=== PATIENT | female | born 1945 | race Caucasian/White ===

== ENCOUNTER 2020-07-20 09:30 | Observation (INO) | payer MEDICARE ==
[~2020-07-20] VITALS: Ht 165.1 cm; Wt 64.6 kg
[~2020-07-20 09:30] MED LIST: BACTRIM DS TAB1 EACH PO; CEFTIN250 MG PO; CELEXA20 MG PO; FLAGYL500 MG PO; IMODIUM2 MG PO; LEVOTHYROXINE88 MCG PO; PILOCARPINE HCL5 MG PO; PROTONIX40 MG/ML PO; REGLAN10 MG PO; VITAMIN D35000 UNIT PO
[2020-07-20] MEDS ORDERED: SODIUM CHLORIDE 0.9% 1000ML 1,000 ML IV STA (10:01)
--- NOTE | 2020-07-20 10:09 | Emergency Department Note ---
History of Present Illnes History of Present Illness Chief Complaint: Eye, Ear, Nose, Throat, Dental History of Present Illness This is a 75 year old female. She Reports that she was eating yesterday and since then she has felt like something has been stuck in her throat and she has not been able to swallow water, her medication, oatmeal or anything else since yesterday. She has had this problem before but not this bad and usually she can eat something thick like oatmeal and push it in and get it to move down with drinking lots of water but this time nothing will go down, it just comes right back up. . Historian: Patient Arrival Mode: Car Form Setter Required: No Onset (how long ago): hour(s) Radiation: Reports non-radiation Severity: moderate Onset quality: sudden Duration (how long): hour(s) Progression: worsening Relieving factors: none Exacerbating factors: none Associated symptoms: Reports denies other symptoms Treatments prior to arrival: none Past Medical/Family History Physician Review I have reviewed the patient's past medical and family history. Any updates have been documented here. Past Medical History Recent Fever: No Clinical Suspicion of Infectio: No New/Unexplained Change in Ment: No Past Medical History: Hypothyroidism, Cancer, Anxiety, Depression, Hy perlipedemia Other Medical History: Thyroid cancer Non Hodgkins Lymphoma Past Surgical History: Hysterectomy, T&A, Lumpectomy Other Surgery: Thyroidectomy Social History Smoking Cessation: Never Smoker Counseling Performed: No Alcohol Use: None Any Illegal Drug Use: No Physically hurt or threatened: No Other Any Pre-Existing Lines (PICC,: No Review of Systems Review of Systems Constitutional: Reports no symptoms EENTM: Reports no symptoms Cardiovascular: Reports no symptoms Respiratory: Reports no symptoms Gastrointestinal: Reports as per HPI Genitourinary: Reports no symptoms Musculoskeletal: Reports no symptoms Integumentary: Reports no symptoms Neurological: Reports no symptoms Psychological: Reports no symptoms Endocrine: Reports no symptoms Hematological/Lymphatic: Reports no symptoms Physical Exam Related Data Allergies: Coded Allergies: amoxicillin (Verified Allergy, Intermediate, RASH, 05/13/15) tetanus & diphtheria toxoids (Verified Allergy, Intermediate, RASH, 05/13/15) Triage Vital Signs Vital Signs Date Time Temp Pulse Resp B/P (MAP) Pulse Ox O2 Delivery O2 Flow Rate FiO2 07/20/20 09:39 99.5 55 16 172/78 100 Room Air Vital signs reviewed: Yes Physical Exam CONSTITUTIONAL Constitutional: Present well-developed, Present well-nourished HENT HENT: Present normocephalic, Present atraumatic, Present oropharynx normal, Present mucosae dry, Present nose normal HENT L/R: Present left ext ear normal, Present right ext ear normal EYES Eyes: Reports PERRL, Reports conjunctivae normal NECK Neck: Present ROM normal PULMONARY Pulmonary: Present effort normal, Present breath sounds normal CARDIOVASCULAR Cardiovascular: Present regular rhythm, Present heart sounds normal, Present capillary refill normal, Present normal rate GASTROINTESTINAL Abdominal: Present soft, Present nontender, Present bowel sounds normal GENITOURINARY Genitourinary: Present exam deferred SKIN Skin: Present warm, Present dry MUSCULOSKELETAL Musculoskeletal: Present ROM normal NEUROLOGICAL Neurological: Present alert, Present oriented x 3, Present no gross motor or sensory deficits PSYCHOLOGICAL Psychological: Present mood/affect normal, Present judgement normal Results Laboratory Lab results reviewed: Yes Laboratory comments Lab ok Imaging Imaging results reviewed: Yes Imaging Comments no acute Procedures EJ/ Peripheral Line EJ/peripheral line location: left neck Time out performed: Yes Size (gauge): 20 IV secured/dressing applied: Yes Patient tolerated procedure: no complications Assessment & Plan Medical Decision Making MDM esophageal stricture, cannot keep down any fluid, needs endoscopy sandra Reassessment Reassessment no changes Assessment & Plan Final Impression: (1) Esophageal stricture (2) Dehydration (3) Dysphagia Depart Disposition: ADMITTED Last Vital Signs Date Time Temp Pulse Resp B/P (MAP) Pulse Ox O2 Delivery O2 Flow Rate FiO2 07/20/20 09:39 99.5 55 16 172/78 100 Room Air Home Meds Active Scripts Loperamide Hcl* (IMODIUM*) 2 Mg Cap, 2 MG PO Q4HR PRN for DIARRHEA, #30 Prov:ADDIE CHAPMAN LOFTER 05/16/15 Metoclopramide Hcl (REGLAN) 10 Mg Tablet, 10 MG PO ACHS for 30 Days Prov:ADDIE CHAPMAN LOFTER 05/16/15 Pantoprazole Sod (PROTONIX) 40 Mg/Ml Susp, 40 MG PO ACB for 30 Days, 2 Refills Prov:ADDIE CHAPMAN LOFTER 05/16/15 Reported Medications Pilocarpine Hcl (PILOCARPINE HCL) 5 Mg Tablet, 5 MG PO TID 05/13/15 Levothyroxine Sodium (LEVOTHYROXINE SODIUM) 88 Mcg Tablet, 88 MCG PO DAILY, #30 TAB 05/13/15 Citalopram Hydrobromide (CELEXA) 20 Mg Tablet, 20 MG PO DAILY PRN for ANXIETY 05/13/15 Cholecalciferol (Vitamin D3) (VITAMIN D3) 5,000 Unit Capsule, 5000 UNITS PO DAILY 05/13/15 Discontinued Scripts Cefuroxime Axetil (CEFTIN) 250 Mg Tablet, 1 TAB PO Q12H for 10 Days Prov:ADDIE CHAPMAN LOFTER 05/16/15 Metronidazole (FLAGYL) 500 Mg Tablet, 500 MG PO Q8H for 10 Days Prov:ADDIE CHAPMAN LOFTER 05/16/15 Medications in the ED Ondansetron HCl 4 mg ONCE ONCE IV ; Start 07/20/20 at 10:15; Stop 07/20/20 at 10:16; Status UNV Famotidine 20 mg ONCE ONCE IV ; Start 07/20/20 at 10:15; Stop 07/20/20 at 10:16; Status UNV Sodium Chloride 1,000 ml @ 0 mls/hr Q0M STAT IV ; Start 07/20/20 at 10:01; Stop 07/20/20 at 10:03; Status DC Physician Attestation Provider Attestation case discussed with Dr To and JONN Alejandro MD Jul 20, 2020 10:09
[2020-07-20] MEDS ORDERED: SODIUM CHLORIDE 0.9% 1000ML 1,000 ML ONE (10:14)
[2020-07-20] MEDS ORDERED: ONDANSETRON HCL INJ 2MG/ML 2ML 2 MG/ML VIAL IV ONE (10:15)
[2020-07-20] MEDS ORDERED: ONDANSETRON HCL INJ 2MG/ML 2ML 2 MG/ML VIAL IV PRN (10:15)
[2020-07-20] MEDS ORDERED: DIPHENHYDRAMINE HCL INJ 50 MG/ML VIAL IV PRN (10:15)
[2020-07-20] MEDS ORDERED: ENALAPRILAT IV INJ 1.25 MG/ML VIAL IV PRN (10:15)
[2020-07-20] MEDS ORDERED: FAMOTIDINE 20 MG/2 ML VIAL IV ONE (10:15)
[2020-07-20] MEDS ORDERED: MORPHINE SULFATE INJ 4 MG/ML INJ 1ML IV PRN (10:15)
--- NOTE | 2020-07-20 10:39 | NUR ---
Three IV sticks tried on Pt and unable to obtain an IV, pt is dehydrated and veins are flat. aware.
--- NOTE | 2020-07-20 11:03 | Diagnostic Imaging Report ---
EXAM: Single AP view of the chest. COMPARISON: None. INDICATION: ^DIFFICULTY SWALLOWING ^20200720 ^1040 FINDINGS: Lines/tubes: None. Limited neck: Prominent soft tissue opacity overlying the upper neck and midline. Lungs: The lungs are well inflated and clear. Pleura: There is no pleural effusion or pneumothorax. Heart and mediastinum: The heart is within normal limits. Both mariah are prominent. Mild atherosclerotic calcifications of the aortic arch. Bones and soft tissues: Dextroscoliosis. IMPRESSION: No acute cardiopulmonary abnormalities. No metallic foreign bodies overlying the airway in the chest. Prominent soft tissue opacity overlying the upper neck and midline is indeterminate. Consider neck x-ray frontal and lateral views. Prominent bilateral hilar may relate to enlarged pulmonary arteries. This can be further evaluated with outpatient CT chest with IV contrast. Signed by: Dr. Stephanie Levi M.D. on 07/20/2020 10:59 AM
--- OUTSIDE RECORDS SUMMARY | 2020-07-20 12:11 | XMS REPORT | Continuity of Care Document ---
Author Author [facility] Organization [facility] Address [address] [place] [address] Dr. Harden. [address] [place] [phone] Phone Unavailable Care Team Providers Care Lapper Name Role Phone Ton CASILLAS Attphys Unavailable PHIL SPENCER Admphys Unavailable Problems This patient has no known problems. Allergies, Adverse Reactions, Alerts This patient has no known allergies or adverse reactions. Medications This patient has no known medications. Procedures This patient has no known procedures. Results Test Description Test Time Test Comments Results Result Comments Source CXR 1 [facility] 2020-07-20 10:55:00 [facility] [address] [place] [id number] Patient Name: AMRITA WEBER MR #: [id number] : 1945 Age/Sex: 75/F Req #: [id number] Adm Physician: Ordered by: JONN CASILLAS MD Report #: [id number] Location: [facility] Room/Bed: Procedure: [id number] HOPD/CXR 1 [facility] Exam Date: 07/20/20 Exam Time: 1040 REPORT STATUS: Signed EXAM: Single AP view of the chest. COMPARISON: None. INDICATION: DIFFICULTY SWALLOWING 20200720 FINDINGS: Lines/tubes: None. Limited neck: Prominent soft tissue opacity overlying the upper neck and midline. L ungs: The lungs are well inflated and clear. Pleura: There is no pleural effusion or pneumothorax. Heart and mediastinum: The heart is within normal limits. Both mariah are prominent. Mild atherosclerotic calcifications of the aortic arch. Bones and soft tissues: Dextroscoliosis. IMPRESSION: No acute cardiopulmonary abnormalities. No metallic foreign bodies overlying the airway in the chest. Prominent soft tissue opacity overlying the upper neck and midline is indeterminate. Consider neck x-ray frontal and lateral views. Prominent bilateral hilar may relate to enlarged pulmonary arteries. This can be further evaluated with outpatient CT chest with IV contrast. Signed by: Dr. Terence Majano M.D. on 07/20/2020 10:59 AM Dictated By: TERENCE MAJANO MD 105 Transcribed By: NIKOS on 07/20/20 105 COPY TO: JONN CASILLAS MD
--- OUTSIDE RECORDS SUMMARY | 2020-07-20 12:19 | XMS REPORT | Continuity of Care Document ---
Author Author [facility] Organization [facility] Address [address] [place] [address] Dr. Harden[address] [place] [phone] Phone Unavailable Care Team Providers Care Turkey Cleaner Name Role Phone Ton CASILLAS Attphys Unavailable PHIL SPENCER Admphys Unavailable Problems This patient has no known problems. Allergies, Adverse Reactions, Alerts This patient has no known allergies or adverse reactions. Medications This patient has no known medications. Procedures This patient has no known procedures. Results Test Description Test Time Test Comments Results Result Comments Source CXR 1 [facility] 2020-07-20 10:55:00 [facility] [address] [place] [id number] Patient Name: AMRITA WEBER MR #: [id number] : 1945 Age/Sex: 75/F Req #: [id number] Adm Physician: Ordered by: JONN CASILLAS MD Report #: [id number] [facility] Room/Bed: Procedure: [id number] HOPD/CXR 1 [facility] Exam Date: 07/20/20 Exam Time: 1040 REPORT [...]
--- NOTE | 2020-07-20 12:57 | NUR ---
[facility] contacted for transport ETA is 35 minutes
--- NOTE | 2020-07-20 13:25 | NUR ---
Report to AUGUSTINE Ness
[2020-07-20] MEDS ORDERED: PROPOFOL IV EMULSION 10 MG/ML 20 ML VIAL ONE (14:02)
[2020-07-20] MEDS ORDERED: ONDANSETRON HCL INJ 2MG/ML 2ML 2 MG/ML VIAL ONE (14:02)
[2020-07-20] MEDS ORDERED: LIDOCAINE HCL 2% LOCAL INJ 5 ML SDV VIAL INJ ONE (14:02)
[2020-07-20] MEDS ORDERED: DEXAMETHASONE SOD PHOS INJ 4 MG/ML VIAL ONE (14:02)
[2020-07-20] MEDS ORDERED: PANTOPRAZOLE 40 MG 10ML VIAL ONE (15:35)
[2020-07-20] MEDS ORDERED: METOCLOPRAMIDE HCL 10 MG/2ML VIAL ONE (15:35)
[2020-07-20] MEDS: PANTOPRAZOLE 40 MG 10ML VIAL IV SCH (15:45)
--- NOTE | 2020-07-20 16:30 | NUR ---
PATIENT RECEIVED FROM RECOVERY PER STRETCHER. PATIENT WAS TRANSFERRED FROM [facility]. ALERT AND VERBALLY RESPONSIVE, ABLE TO TRANSFER SELF FROM STRETCHER TO BED. DENIED PAIN AT THIS TIME. SKIN WARM AND DRY TO TOUCH, RESPIRATION EVEN AND UNLABORED, ABDOMEN SOFT AND NON DISTENDED. PATIENT ORIENTED TO SURROUNDINGS. BED IN LOWER POSITION, CALL LIGHT AT REACH. INSTRUCTED TO CALL FOR ASSISTANCE NEEDED.
[2020-07-20 16:46] VITALS: BP 168/69
[2020-07-20 16:57] VITALS: BP 168/69
--- NOTE | 2020-07-20 17:22 | Operative Report ---
DATE OF PROCEDURE: 07/20/2020 SURGEON: Felton Adames MD PROCEDURE: 1. EGD with foreign body removal. 2. Esophageal dilatation. 3. Polypectomy and biopsies. INDICATION FOR PROCEDURE: Foreign body in esophagus. MEDICATIONS: The patient was done under MAC, please see anesthesiologist's note. PROCEDURE IN DETAIL: With the patient in left lateral decubitus position and after induction of adequate general endotracheal anesthesia, a flexible fiberoptic Olympus gastroscope was introduced into the esophagus under direct visualization without any difficulty. There was a meat bolus noted impacted in the distal esophagus and it was eventually removed with a combination of polypectomy snare and a large biopsy forceps. The mucosa overlying the distal esophagus was ulcerated and friable. The scope was then advanced with ease into the stomach. Mucosa overlying the antrum and the body revealed some patchy intense erythema and [id number] edema, and biopsies were obtained and sent to stain for H pylori. Also, some hyperplastic-appearing polyps were noted in the body of the stomach and somewhat partially excised with the cold biopsy forceps. Pylorus was of normal contour and shape, was intubated with ease and the scope was advanced all the way to the second portion of the duodenum. The scope was then withdrawn slowly, mucosa overlying the proximal second portion and the duodenal bulb appeared to be within normal limits. The scope was then withdrawn back into the stomach and retroflexed mucosa overlying the fundus and cardia appeared to be within normal limits. The scope was then straightened out, it was subsequently withdrawn. The esophageal stricture was then dilated to size 48-Nepalese Wolf. The patient tolerated procedure well. IMPRESSION: 1. Meat bolus in distal esophagus removed per polypectomy snare and large biopsy forceps. 2. Ulcerated distal esophagus dilated to size 48-Nepalese Wolf. 3. Gastritis, biopsied, biopsies sent to stain for H pylori. 4. Gastric polyps, body, hyperplastic-appearing, some partially excised with the cold biopsy forceps. PLAN: Follow up histology. Initiate Protonix 40 mg IV b.i.d. Felton Adames MD [facility]/ABRAHAM /[id number] cc: Zehra To MD
[2020-07-20] MEDS: FAMOTIDINE 20 MG/2 ML VIAL IV SCH (17:30)
[2020-07-20] MEDS: D5.45%NS/KCL 20MEQ 1,000 ML IV SCH (18:15)
--- NOTE | 2020-07-20 18:38 | History and Physical ---
PRIMARY CARE DO[facility] CHIEF COMPLAINT: Food stuck in her throat. HISTORY OF PRESENT ILLNESS: This is a 75-year-old woman, who clearly has trouble eating having the food or water getting stuck, however, yesterday the patient had some pork chops, however, it got stuck and therefore the patient came to the emergency room. Otherwise, she is in her usual state of health. No chest pain. No shortness of breath, no fever, no cough. The patient stated she had an endoscopy three or four years ago thoroughly it was unremarkable. The patient does not take anything for her stomach. The patient was emergently taken to have EGD done for which foreign body was removed. PAST MEDICAL/SURGICAL HISTORY: 1. Hyperlipidemia. 2. Breast cancer. 3. Hypothyroidism. 4. Lumpectomy. 5. Hysterectomy. MEDICATIONS: Please see medication reconciliation form. ALLERGIES: PENICILLIN. SOCIAL HISTORY: Does not smoke. FAMILY HISTORY: No cancer. REVIEW OF SYSTEMS: A 12-point review of system obtained and nothing else is significant other than what is stated in HPI. VITAL SIGNS: Temperature 99.5, pulse 70, respiratory rate 18, blood pressure 156/63. GENERAL: No acute distress. SKIN: No rash. HEENT: Sclerae anicteric. Oropharynx is clear. LUNGS: Clear. HEART: Regular rate and rhythm. Normal S1, S2. GI: Abdomen is soft and nontender. NEUROLOGIC: Alert and oriented x3. Cranial nerves II through XII grossly intact. PSYCHIATRIC: No hallucination. MUSCULOSKELETAL: Painless range of motion. LABORATORY DATA: Creatinine 0.85. ASSESSMENT AND PLAN: 1. Dysphagia with esophageal stricture, status post full bolus removal via EGD. We will continue IV Protonix per GI given there is some ulcerations. Will start full liquid diet. We will see how she does tomorrow. 2. GI and DVT prophylaxis. Protonix IV and no chemical DVT prophylaxis due to recent procedure. MD CHARITY Schwarz/ABRAHAM /[id number] [facility]
[2020-07-20 20:00] VITALS: BP 148/65
[2020-07-20 20:20] VITALS: BP 148/65
--- NOTE | 2020-07-20 20:20 | NUR ---
PATIENT RESTING IN BED IN STABLE CONDITION, NO SIGNS OF DISTRESS NOTED. IV FLUIDS ARE RUNNING AT ORDERED RATE, PATIENT VOICES NO PAIN AT THIS TIME. PATIENT VOICES THAT THEY ARE EATING AND SWALLOWING FOOD WELL. BED IS IN LOW POSITION, BOTH SIDE RAILS ARE UP, CALL LIGHT IS WITHIN EASY REACH, WILL CONTINUE TO MONITOR.
[2020-07-21] VITALS: BP 133/61
[2020-07-21] MEDS: D5.45%NS/KCL 20MEQ 1,000 ML IV SCH ×2 (01:47→11:11)
[2020-07-21] MEDS: PANTOPRAZOLE 40 MG 10ML VIAL IV SCH (03:51)
[2020-07-21 04:00] VITALS: BP 123/53
--- NOTE | 2020-07-21 07:14 | NUR ---
PATIENT IN BED RESTING WITH NO S/S OF DISCOMFORT. IV FLUID INFUSING ORDERED. BED IN LOWER POSITION, CALL LIGHT AT REACH.
[2020-07-21 07:35] VITALS: BP 130/54
[2020-07-21 07:45] VITALS: BP 130/54
[2020-07-21] MEDS: FAMOTIDINE 20 MG/2 ML VIAL IV SCH (09:14)
--- NOTE | 2020-07-21 11:02 | NUR ---
PATIENT AMBULATING BY SELF IN THE ROOM, NO COMPLAIN VOICED. CALL LIGHT AT REACH.
[2020-07-21 13:00] VITALS: BP 121/55
[2020-07-21] MEDS ORDERED: PANTOPRAZOLE SO40 MG PO (14:49)
--- NOTE | 2020-07-21 14:51 | NUR ---
PER DR. Gabriella SPENCER, PATIENT IS OK TO DISCHARGE HOME. CALL OFFICE TO SCHEDULE FOLLOW UP APPOINTMENT.
--- NOTE | 2020-07-21 15:40 | NUR ---
PATIENT DISCHARGED HOME. DISCHARGE INSTRUCTIONS, PRESCRIPTION, AND FOLLOW UP GIVEN TO PATIENT, SHE VERBALIZED UNDERSTANDING. IV TO LEFT EJ REMOVED WITH TIP INTACT. ALL PERSONAL ITEMS TAKEN WITH PATIENT. REFUSED WHEEL CHAIR, BUT WAS ACCOMPANIED BY STAFF MEMBER TO FRONT LOBBY IN STABLE CONDITION.
--- NOTE | 2020-07-22 03:58 | Discharge Summary ---
PRIMARY CARE DOCTOR: Dr. Mosqueda with [facility]. FINAL DIAGNOSES: Dysphagia and esophageal stricture with meat bolus. SECONDARY DIAGNOSES: 1. Hyperlipidemia. 2. Breast cancer. 3. Hypothyroidism. CONSULTANTS: Dr. Adames, GI. PROCEDURES/STUDIES PERFORMED: EGD, where meat bolus was retrieved and ulcerated distal esophagus was dilated. HISTORY: Per dictated H and P. HOSPITAL COURSE: The patient underwent EGD and meat bolus retrieval. Given that there was some ulceration, the patient was put on IV Protonix twice a day. The patient was allowed liquid diet. She did well. Next day, the patient was tolerating GI soft diet. Therefore, was deemed stable for discharge home. The patient will continue Protonix twice a day. The patient was seen and examined today. CONDITION ON DISCHARGE: Improved. DISCHARGE MEDICATIONS: Please see medication reconciliation form. FOLLOWP: The patient will follow up with PCP in 1 to 2 weeks and follow up with Dr. Adames in 2 weeks. [facility] MD CHARITY Grant/ABRAHAM /[id number]
== END 2020-07-21 15:26 | disposition home or self-care (01) ==
LOC: FSED 09:42 → ERHOLD 10:03 → MED/SURG3 16:13
PROVIDERS: ADMIT Internal Medicine; ATTEND Internal Medicine
DX: T18.128A Food in esophagus causing other injury, initial encounter (principal); C80.1 Malignant (primary) neoplasm, unspecified; E03.9 Hypothyroidism, unspecified; K31.7 Polyp of stomach and duodenum; K22.10 Ulcer of esophagus without bleeding; Z11.59 Encounter for screening for other viral diseases
CPT/HCPCS: 43239; 43251; 71045; 80048; 85025; 88305; 88312; 96374; 96375; 99284; C9113 ×2; G0378 ×2; J1100; J2001; J2405; J2704; J2765; J7030; U0002; 45379

== ENCOUNTER 2022-01-26 14:19 | Emergency (ER) | payer MEDICARE ==
[~2022-01-26] VITALS: Ht 165.1 cm; Wt 68.0 kg
[~2022-01-26 14:19] MED LIST changes: +PANTOPRAZOLE SO40 MG PO
[2022-01-26] MEDS ORDERED: LORATADINE10 MG PO (15:17)
[2022-01-26] MEDS ORDERED: FLONASE ALLERG9.9 ML INH (15:17)
[2022-01-26] MEDS ORDERED: AZITHROMYCIN250 MG PO ×2 (15:17→15:44)
[2022-01-26] MEDS ORDERED: ACETAMINOPHEN500 MG PO (15:42)
[2022-01-26] MEDS ORDERED: OSELTAMIVIR PHO75 MG PO (15:44)
== END 2022-01-26 16:13 | disposition home or self-care (01) ==
LOC: FSED 14:25
DX: R50.9 Fever, unspecified (principal); J10.1 Influenza due to other identified influenza virus with other respiratory manifestations; J40 Bronchitis, not specified as acute or chronic; E78.5 Hyperlipidemia, unspecified; E03.9 Hypothyroidism, unspecified; F41.9 Anxiety disorder, unspecified; Z85.850 Personal history of malignant neoplasm of thyroid; Z85.72 Personal history of non-Hodgkin lymphomas
CPT/HCPCS: 71046; 83518; 87400; 99283